=== PATIENT | male | born 1985 | race Caucasian/White ===

== ENCOUNTER 2020-07-14 12:20 | Outpatient (CLI) | payer OTHER, SELFPAY ==
--- NOTE | ~2020-07-14 | XR_ITS ---
XR hand LT min 3V DATE: 07/14/2020 12:49 INDICATION: Second digit proximal interphalangeal joint pain and limited range of motion TECHNIQUE: 3 views COMPARISON: None FINDINGS: No fracture or dislocation, periosteal reaction or bone destruction. Benign cyst of lunate bone. IMPRESSION: No significant radiographic abnormality of the second digit Benign lunate cyst Reviewed, dictated and finalized at location A.
[2020-07-14 12:41] LABS: Basophils Percent Auto 0.6 % (0.2-1.2); Eosinophils Absolute Auto 0.2 K/mm3 (0-0.3); Eosinophils Percent Auto 2.4 % (0-4.4); Hematocrit 47.9 % (42.0-52.0); Hemoglobin 16.7 g/dL (14.0-18.0); Immature Granulocyte Absolute 0.02 K/mm3 (0.00-0.031); Immature Granulocyte Percent A 0.3 % (0-0.5); Lymphocytes Absolute Auto 1.95 K/mm3 (0.9-3.2); Lymphocytes Percent Auto 27.2 % (18.3-44.2); Mean Corpuscular HGB Conc 34.9 g/dl (32-36); Mean Corpuscular Hemoglobin 30.7 pg (26-34); Mean Corpuscular Volume 88.1 fl (80-100); Mean Platelet Volume 9.4 fl (7.4-10.4); Monocytes Absolute Auto 0.4 K/mm3 (0.1-0.6); Monocytes Percent Auto 6.1 % (2.6-8.5); Neutrophils Absolute Auto 4.6 K/mm3 (1.3-6.7); Neutrophils Percent Auto 63.4 % (45.5-73.1); Platelet Count Result 263 k/mm3 (150-375); Red Blood Count 5.44 M/mm3 (4.6-6.20); Red Cell Distribution Width 12.4 % (11.5-14.5); White Blood Count 7.2 K/mm3 (4.5-10.0)
[2020-07-14 12:54] LABS: Alanine Aminotransferase 17 U/L (4-50); Albumin Level 4.3 g/dL (3.5-5.1); Alkaline Phosphatase 52 U/L (38-126); Anion Gap 6 mmol/L (8-16); Aspartate Amino Transferase 23 U/L (17-59); Bilirubin,Total 1.7 mg/dL (0.2-1.3); Blood Urea Nitrogen 16 mg/dL (9-20); Carbon Dioxide 29 mmol/L (22-30); Chloride 103 mmol/L (98-107); Cholesterol 243 mg/dL (0-200); Estimated Glomerular Filt Rate > 60; Glucose 92 mg/dL (75-110); HDL Direct 52 mg/dL; Potassium 4.2 mmol/L (3.4-5.0); Sodium 138 mmol/L (137-145); Triglycerides 295 mg/dL (<150)
[2020-07-14 13:05] LABS: LDL Cholesterol Direct 146 mg/dL
[2020-07-14 13:37] LABS: Hepatitis B Surface Antigen Negative (Negative)
[2020-07-14 13:43] LABS: HAV RESULT Negative (Negative); Hepatitis B Core IgM Result Negative (Negative)
[2020-07-14 13:56] LABS: Hepatitis C Virus Antibody Reactive (Negative)
[2020-07-17 20:39] LABS: Hepatitis C RNA, Quant PCR <15 IU/mL
== END 2020-07-14 12:21 | disposition home or self-care (01) ==
PROVIDERS: PCP Nurse Practitioner Family; Visit Provider Nurse Practitioner
DX: Z13.220 Encounter for screening for lipoid disorders (principal); Z86.19 Personal history of other infectious and parasitic diseases; R53.83 Other fatigue; Z13.6 Encounter for screening for cardiovascular disorders; M79.642 Pain in left hand; M85.442 Solitary bone cyst, left hand
CPT/HCPCS: 36415; 73130; 80053; 80061; 80074; 84443; 85025; 87522

== ENCOUNTER 2021-03-04 15:02 | Emergency (ER) | payer OTHER, SELFPAY ==
--- NOTE | ~2021-03-04 | XR_ITS ---
XR finger 3rd LT min 2V 03/04/2021 15:24 INDICATION: Left third PIP finger pain after trauma PROCEDURE: 3 views left third finger COMPARISON: 07/14/2020 FINDINGS: Fracture, dislocation or subluxation is not identified. The soft tissues appear within norm al limits. No foreign bodies are identified. IMPRESSION: 1: NO ACUTE BONE OR JOINT ABNORMALITY IDENTIFIED. Reviewed, dictated and finalized at location B.
--- NOTE | 2021-03-04 15:14 | ED.UPPEXIN ---
HPI - Extremity Injury (Upper) General Chief Complaint: Extremity Injury, Upper Stated Complaint: left 3rd finger injury Time Seen by Provider: 03/04/21 15:26 Source: patient and RN notes reviewed Mode of arrival: ambulatory Limitations: no limitations History of Present Illness HPI narrative: 35-year-old male presents with concern for swelling, bruising to the third digit of the left hand. Reports approximately 1 week ago he fell into a hole while working and injured his finger. Reports his finger bent sideways . Reports he has been using a homemade splint for immobilization. Reports he has been using ibuprofen for pain relief. Reports most pain and swelling at the PIP joint. Reports previous injury in July to the same digit with prolonged healing. MD complaint: injury to: left and finger Other Extremity Injury: Left: fingers Related Data Home Medications Medication Instructions Recorded Confirmed No Home Medications 05/19/20 05/19/20 Allergies Allergy/AdvReac Type Severity Reaction Status Date / Time No Known Allergies Allergy Verified 03/04/21 15:29 Review of Systems Review of Systems: Narrative: CONSTITUTIONAL: Denies malaise, chills, sweats, or fever. SKIN: Denies abrasions, lacerations MUSCULOSKELETAL: Reports bruising, swelling, pain to the third digit of left hand, focused at the PIP joint NEUROLOGIC: Denies numbness, weakness All systems reviewed & are unremarkable except as noted in HPI and below PMFSH Past Medical History Medical History (Updated 03/04/21 @ 15:45 by Kathie Neil NP) History of hepatitis C Family History Family History (Updated 05/19/20 @ 17:17 by Bela Willis NP) Mother Ovarian cancer Social History Social History (Updated 05/19/20 @ 17:20 by Bela Willis NP) Social History: 4 cups of Cola a day. Smoking packs per day: 1 Smoking cigarettes per day: 20.0 Years smoked: 15 Smoking pack-years: 15.00 Smoking status: Former smoker Alcohol intake: former Substance use: former Substance use type: heroin Gender identity (if verbalized by the patient): Male Comments At time of signature, agree with nursing past medical, surgical, social and family history. There is no relevant family history pertinent to the presenting complaint Exam Narrative: Exam Narrative: GENERAL: Well-appearing, well-nourished, and in no acute distress. HEAD: Normocephalic EYES: PERRLA, conjunctivae clear NECK: Supple. CHEST: Speaks in full sentences. No respiratory distress. HEART: Regular rate and rhythm. Normal and equal peripheral pulses. EXTREMITIES: Third digit of left hand has normal strength and sensation. 5/5 strength with digit flexion, extension. Range of motion limited due to swelling, patient unable to fully flex digit. No clubbing, cyanosis. Moderate ecchymosis and edema noted, concentrated in the PIP joint. PIP joint tenderness. Skin intact. Normal digital cascade with flexion of fingers, median, ulnar and radial nerve intact. Normal sensation of each side of finger. Can perform 'okay' sign, 'cross over finger test of index and middle fingers' and 'thumbs up' sign. No scissoring. Normal thumb opposition. Good capillary refill and radial pulse. Distal capillary refill less than 3 seconds. SKIN: Warn, dry, intact, pink. No rash NEURO: Alert and oriented x3. PSYCH: Normal mood and affect Course Course Emergency Course: Patient is aware of diagnosis, understands and agrees to treatment plan. Anticipatory guidance given. Patient agrees to follow-up as directed and is aware of reasons to seek care at the emergency department. Portions of this record may have been created with voice recognition software Vital Signs Vital signs: Vital Signs Temperature 98.0 F 03/04/21 15:15 Pulse Rate 80 03/04/21 15:15 Respiratory Rate 16 03/04/21 15:15 Blood Pressure 139/74 03/04/21 15:15 Pulse Oximetry 99 03/04/21 15:15 Temperature 98.0 F
[2021-03-04 15:15] VITALS: BP 139/74; PULSE 80; RESP 16; TEMP 36.7; O2SAT 99
--- NOTE | 2021-03-04 15:31 | PC.NURSE ---
1513- pt taken straight to x-ray from triage.
== END 2021-03-04 15:48 | disposition home or self-care (01) ==
PROVIDERS: Emergency Provider Nurse Practitioner
DX: S63.633A Sprain of interphalangeal joint of left middle finger, initial encounter (principal); W17.2XXA Fall into hole, initial encounter; Y99.0 Civilian activity done for income or pay; Z87.891 Personal history of nicotine dependence; Z86.19 Personal history of other infectious and parasitic diseases
CPT/HCPCS: 29130; 73140; 99213; G0463

== ENCOUNTER 2023-07-10 09:06 | Emergency (ER) | payer OTHER, SELFPAY ==
--- NOTE | ~2023-07-10 | XR_ITS ---
EXAMINATION: XR finger 2nd LT min 2V INDICATION: Left second finger pain, initial encounter TECHNIQUE: Four views of the left second finger are obtained. COMPARISON: None available FINDINGS: There is an acute, traumatic, oblique, intra-articular fracture at the base of the second d istal phalanx which involves greater than 50% of the articular surface. There is soft tissue swelling of the finger. No additional fracture is identified. IMPRESSION: 1. Intra-articular fracture at the base of the second distal phalanx involving greater than 50% of th e articular surface. Orthopedic follow-up is recommended. Reviewed, dictated and finalized at location A. IMPRESSION: 1. Intra-articular fracture at the base of the second distal phalanx involving greater than 50% of the articular surface. Orthopedic follow-up is recommended.
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
[2023-07-10 09:54] VITALS: BP 147/99; PULSE 76; RESP 18; TEMP 36.7; O2SAT 99
== END 2023-07-10 11:15 | disposition home or self-care (01) ==
PROVIDERS: Emergency Provider Nurse Practitioner; PCP Family Medicine
DX: S01.81XA Laceration without foreign body of other part of head, initial encounter (principal); S62.631A Displaced fracture of distal phalanx of left index finger, initial encounter for closed fracture; V28.49XA Other motorcycle driver injured in noncollision transport accident in traffic accident, initial encounter; Z87.891 Personal history of nicotine dependence
CPT/HCPCS: 12011; 29130; 73140; 99214; G0463